=== PATIENT | male | born 1995 | race Caucasian/White ===

== ENCOUNTER 2017-04-02 07:47 | Emergency (ER) | payer BC, OTHER ==
[2017-04-02 07:52] VITALS: BP 140/81; PULSE 90; TEMP 98.1; BMI 29.7
[2017-04-02] MEDS ORDERED: IBUPROFEN 600 MG TABLET (FP) PO ONE ×2 (08:45→08:47)
--- NOTE | 2017-04-02 08:51 | PDOC ---
History of Present Illness - General Chief Complaint: Pain Stated Complaint: ELBOW PAIN Time Seen by Provider: 04/02/17 08:41 History Source: Patient Exam Limitations: No Limitations - History of Present Illness Initial Comments: 04/02/17 08:54 My Chief complaint: left elbow pain, fall last night History of Present Illness: PT is a 21-year-old male with no significant medical history here today complaining of the left lateral elbow pain since falling on his elbow last night. Patient has minimal swelling to the area and pain increases with extension of elbow. Patient denies any numbness of his left arm or left hand or fingers. Patient denies any other injury. 04/02/17 12:25 Occurred: reports: yesterday Severity: reports: moderate Pain Location: reports: upper extremity (left elbow) Method of Injury: Yes: fall Modifying Factors: improves with: None Loss of Consciousness: no loss of consciousness Associated Symptoms (Fall): denies symptoms Past History - Past Medical History Allergies/Adverse Reactions: Allergies Allergy/AdvReac Type Severity Reaction Status Date / Time No Known Allergies Allergy Verified 04/02/17 07:52 Home Medications: Ambulatory Orders NK [No Known Home Medication] 04/02/17 Anemia: No Asthma: No Cancer: No Cardiac Disorders: No CVA: No COPD: No CHF: No Dementia: No Diabetes: No GI Disorders: No Disorders: No HTN: No Hypercholesterolemia: No Liver Disease: No Seizures: No Thyroid Disease: No Other medical history: denies - Surgical History Abdominal Surgery: No Appendectomy: No Cardiac Surgery: No Cholecystectomy: No Lung Surgery: No Neurologic Surgery: No Orthopedic Surgery: No - Psycho/Social/Smoking Cessation Hx Suicidal Ideation: No Smoking History: Never smoked Have you smoked in the past 12 months: No Information on smoking cessation initiated: No Hx Alcohol Use: No Drug/Substance Use Hx: No Substance Use Type: None Hx Substance Use Treatment: No Review of Systems - Review of Systems Able to Perform ROS?: Yes Constitutional: No: Symptoms Reported HEENTM: No: Symptoms Reported Respiratory: No: Symptoms reported Cardiac (ROS): No: Symptoms Reported ABD/GI: No: Symptoms Reported : No: Symptoms Reported Musculoskeletal: Yes: Joint Pain (left elbow), Joint Swelling (left elbow) Integumentary: No: Symptoms Reported Neurological: No: Symptoms reported *Physical Exam - Vital Signs Last Vital Signs Temp Pulse Resp BP Pulse Ox 98.1 F 90 17 140/81 100 04/02/17 07:50 04/02/17 07:50 04/02/17 07:50 04/02/17 07:50 04/02/17 07:50 - Physical Exam General Appearance: Yes: Appropriately Dressed Respiratory/Chest: positive: Lungs Clear, Normal Breath Sounds. negative: Chest Tender, Respiratory Distress Cardiovascular: positive: Regular Rhythm, Regular Rate, S1, S2 Comments:: 04/02/17 08:47 radial pulse left + 4 04/02/17 08:51 Extremity: positive: Normal Capillary Refill, Tender (left elbow), Swelling ( elbow with no gross abnormality). negative: Normal Inspection, Normal Range of Motion (left elbow ) Integumentary: positive: Normal Color Neurologic: positive: Alert, Normal Response, Responsive. negative: Respond to painful stimul, Numbness, Sensory Deficit Procedures - Consent Consent obtained: From Patient - Splinting Splint Location: Left: Forearm Pre-Proc Neuro Vasc Exam: normal Hand-Made Type: orthoglass Splint Type: Yes: Posterior (left ) Post-Proc Neuro Vasc Exam: normal Ruben Bandage: 3" Sling: Yes (left ) Complications: No ED Treatment Course - RADIOLOGY Radiology Studies Ordered: Category Date Time Status ELBOW-LEFT [RAD] Stat Radiology 04/02/17 08:45 Ordered FOREARM- LEFT [RAD] Stat Radiology 04/02/17 08:45 Ordered Medical Decision Making - Medical Decision Making 04/02/17 12:26 PT is a 21-year-old male with no significant medical history here today complaining of the left lateral elbow pain since falling on his elbow last night. Patient has minimal swelling to the area and pain increases with extension of elbow. Patient denies any numbness of his left arm or left hand or fingers. Patient denies any other injury. Fall Left elbow pain r/o fracture\\ PLAN: xray left elbow/forearm soft tissue swelling ulnar aspect per Dr. Gifford posterior orthoglass splint applied & sling due to tenderness of area follow up with ortho on 04/05/17 Ibuprofen 600 mg po now 04/02/17 12:28 *DC/Admit/Observation/Transfer Diagnosis at time of Disposition: Effusion, left elbow Fall Qualifiers: Encounter type: initial encounter Qualified Code(s): W19.XXXA - Unspecified fall, initial encounter - Discharge Dispostion Disposition: HOME Condition at time of disposition: Stable - Referrals Referrals: Devin Blankenship MD [Primary Care Provider] - Jair Hager MD [Staff Physician] - - Patient Instructions Additional Instructions: follow-up with orthopedist on 04/05/17 for further evaluation keep splint in place left arm and wear sling during the day, take off at night and elevate left arm on pillow Apply ice left elbow every 2 hours while awake today take ibuprofen as needed as directed by maintenance person return to emergency room if any numbness of left arm or hand patient voiced understanding of discharge instructions and all questions were answered
== END 2017-04-02 10:00 | disposition home or self-care (01) ==
LOC: JERFT 07:47
PROC: 2W39X1Z Immobilization of Left Upper Extremity using Splint (ICD-10-PCS; principal; 2017-04-02)
DX: M25.422 Effusion, left elbow (principal); W01.0XXA Fall on same level from slipping, tripping and stumbling without subsequent striking against object, initial encounter; Y93.89 Activity, other specified; Y92.89 Other specified places as the place of occurrence of the external cause; Y99.8 Other external cause status
CPT/HCPCS: 73070-TC-LT; 73090-TC-LT; 99282-25